=== PATIENT | male | born 1980 | race Caucasian/White ===

== ENCOUNTER 2018-03-06 21:23 | Emergency (ER) | payer BC ==
[~2018-03-06] VITALS: Ht 175.3 cm; Wt 66.0 kg
[2018-03-06 21:25] VITALS: BP 120/76
== END 2018-03-06 23:12 | disposition home or self-care (01) ==
LOC: ED 22:23
DX: S52.124A Nondisplaced fracture of head of right radius, initial encounter for closed fracture (principal); W19.XXXA Unspecified fall, initial encounter; Y93.51 Activity, roller skating (inline) and skateboarding; Y99.8 Other external cause status; Y92.410 Unspecified street and highway as the place of occurrence of the external cause
CPT/HCPCS: 29125; 99284